=== PATIENT | female | born 1970 | race African-American/Black ===

== ENCOUNTER 2022-07-09 11:28 | Emergency (ER) | payer MEDICAID, OTHER ==
[~2022-07-09] VITALS: Ht 165.1 cm; Wt 82.0 kg
[2022-07-09 17:30] VITALS: BP 108/76
[2022-07-09] MEDS ORDERED: KETOROLAC TROMETH 60MG/2ML VIAL IM ONE (21:00)
== END 2022-07-09 21:12 | disposition home or self-care (01) ==
LOC: EDBD 11:28 → ER 11:28
DX: M25.561 Pain in right knee (principal); W18.39XA Other fall on same level, initial encounter; Y93.89 Activity, other specified; Y92.89 Other specified places as the place of occurrence of the external cause; Y99.8 Other external cause status
CPT/HCPCS: 73562; 96372; 99283; J1885

== ENCOUNTER 2024-09-27 14:59 | Emergency (ER) | payer MEDICAID ==
[~2024-09-27] VITALS: Ht 165.1 cm; Wt 97.2 kg
--- NOTE | 2024-09-27 16:00 | ED.PDOC ---
HPI (NEURO) HPI Comments A 54 YEAR OLD FEMALE PRESENTS TO THE ED WITH COMPLAINT OF HEADACHE AND HIGH BLOOD PRESSURE. PATIENT STATES THAT SHE HAS A HISTORY OF HYPERTENSION AND TAKES LOSARTAN 100 MG Q.D. AND METOPROLOL 50 MG Q.D. TO MANAGE HER BLOOD PRESSURE, BUT NOTES THAT IT HAS BEEN HIGHER THAN USUAL FOR THE LAST 2 DAYS. PATIENT REPORTS SHE ALSO BEGAN TO EXPERIENCE A HEADACHE YESTERDAY. PATIENT STATES HER BLOOD PRESSURE CONTINUED TO RISE TODAY DESPITE TAKING BOTH FOR MEDICATIONS, PROMPTING HER TO COME TO THE ED FOR EVALUATION. PATIENT NOTES THAT SHE HAS BEEN UNDER STRESS RECENTLY DUE TO TAKING CARE OF HER SICK MOTHER. PATIENT DENIES VISION CHANGES, SLURRED SPEECH, ONE-SIDED WEAKNESS, FACIAL DROOP, FEVER, CHILLS, SHORTNESS OF BREATH, CHEST PAIN, ABDOMINAL PAIN, NAUSEA, VOMITING, OR OTHER COMPLAINTS. NO OTHER SYMPTOMS OR MODIFYING FACTORS AT THIS TIME. PATIENT IS ALERT, ORIENTED X 4, AND HAS STEADY GAIT. Chief Complaint: Headache Time Seen by MD: 15:02 Primary Care Provider: DENIES Reviewed Notes: Nurses Notes, Medications, Allergies Information Source: Patient Mode of Arrival: Ambulatory Severity: Moderate Headache Severity: Moderate Timing: Days Duration: Since onset, Days Prehospital treatment: None Headache Quality: Aching Headache Location: Generalized Onset: At rest Circumstances: Recent stress Symptoms: Other (HEADACHE, HIGH BLOOD PRESSURE) Modifying factors: Nothing Associated Signs and Symptoms: Headache Past Medical History PAST MEDICAL HISTORY: HTN Surgical History: Unknown LICENSED PRACTICAL VOCATIONAL NURSE History: Denies all LICENSED PRACTICAL VOCATIONAL NURSE Hx Family History Family History: Reviewed,noncontributory to illness Social History Smoker: Non-Smoker Alcohol: Denies ETOH Use Drugs: Denies Drug Use Lives In: Home Constitutional: denies: chills, diaphoresis, fatigue, fever, malaise, sweats, weakness, others EENTM: denies: blurred vision, double vision, ear bleeding, ear discharge, ear drainage, ear pain, ear ringing, eye pain, eye redness, hearing loss, mouth pain, mouth swelling, nasal discharge, nose bleeding, nose congestion, nose pain, photophobia, tearing, throat pain, throat swelling, voice changes, others Respiratory: denies: cough, hemoptysis, orthopnea, SOB at rest, shortness of breath, SOB with excertion, stridor, wheezing, others Cardiovascular: reports: others (HIGH BLOOD PRESSURE); denies: chest pain, dizzy spells, diaphoresis, Dyspnea on exertion, edema, irregular heart beat, left arm pain, lightheadedness, palpitations, PND, syncope Gastrointestinal: denies: abdomen distended, abdominal pain, blood streaked bowels, constipated, diarrhea, dysphagia, difficulty swallowing, hematemesis, melena, nausea, poor appetite, poor fluid intake, rectal bleeding, rectal pain, vomiting, others Genitourinary: denies: abnormal vagina bleeding, burning, dyspareunia, dysuria, flank pain, frequency, hematuria, incontinence, pain, , vagina discharge, urgency, others Neurological: reports: headache; denies: dizziness, fainting, left sided numbness, left sided weakness, numbness, paresthesia, pre-existing deficit, right sided numbness, right sided weakness, seizure, speech problems, tingling, tremors, weakness, others Musculoskeletal: denies: back pain, gout, joint pain, joint swelling, muscle pain, muscle stiffness, neck pain, others Integumetry: denies: bruises, change in color, change in hair/nails, dryness, laceration, lesions, lumps, rash, wounds, others Allergic/Immunocompromised: denies: Difficulty Healing, Frequent Infections, Hives, Itching, others Hematologic/Lymphatic: denies: anemia, blood clots, easy bleeding, easy bruising, swollen glands, others Endocrine: denies: excessive hunger, excessive sweating, excessive thirst, excessive urination, flushing, intolerance to cold, intolerance to heat, unexplained weight gain, unexplained weight loss, others Psychiatric: reports: anxiety; denies: bipolar disorder, depression, hopeless, panic disorder, schizophrenia, sleepless, suicidal, others All Other Systems: Reviewed and Negative Physical Exam General Appearance: No Apparent Distress, Normal, Other (ANXIOUS ) HEENT: Normal ENT Inspection, PERRL/EOMI, Pharynx Normal, TMs Normal Neck: Full Range of Motion, Non-Tender, Normal, Normal Inspection Respiratory: Chest Non-Tender, Lungs Clear, No Accessory Muscle Use, No Respiratory Distress, Normal Breath Sounds Cardiovascular: No Edema, No JVD, No Murmur, No Gallop, Normal Peripheral Pulses, Regular Rate/Rhythm Breast Exam: Deferred Gastrointestinal: No Organomegaly, Non Tender, No Pulsatile Mass, Normal Bowel Sounds, Soft Genitalia: Deferred Pelvic: Deferred Rectal: Deferred Extremities: No calf tenderness, Normal capillary refill, Normal inspection, Normal range of motion, Non-tender, No pedal edema Musculoskeletal : Apperance: Normal Neurologic: Alert, 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 Was a procedure done?: No Differential Diagnosis (SZ) Seizure: N/A General Weakness: N/A Headache: Cluster, Migraine, Intracerebral Hemorrhage, Mass Lesion, Sinusitis, Other (HYPERTENSION, UNCONTROLLED HYPERTENSION) X-Ray, Labs, Meds, VS Vital Signs Date Time Temp Pulse Resp B/P (MAP) Pulse Ox O2 Delivery O2 Flow Rate FiO2 09/27/24 16:02 77 18 99 Room Air 09/27/24 16:02 98.2 77 18 134/84 (101) 99 98.2 09/27/24 16:00 77 09/27/24 15:22 77 09/27/24 15:22 98.2 77 18 134/84 (101) 99 Lab Test 09/27/24 15:19 Range/Units POC Glucose 100 70-106 mg/dl Current Medications Medications (Trade) Dose Ordered Sig/May Route Start Time Stop Time Status Last Admin Acetaminophen (Tylenol Tablet) 1,000 mg ONCE ONCE PO 09/27/24 16:00 09/27/24 16:01 DC 09/27/24 16:09 EXAM: CT HEAD WITHOUT CONTRAST INDICATION: headache TECHNIQUE: CT of the head without intravenous contrast. Radiation Dose Information: CT Dose: CTDI volume is 58.54 mGy. Dose-length product is 938.39 mGy*cm The dose indicators for CT are the volume Computed Tomography (CT) Dose Index (C TDIvol) and the Dose Length Product (DLP), and are measured in units of mGy and mGy-cm, respectively. These indicators are not patient dose, but values generated from the CT scanner acquisition factors. The report includes radiation exposure data for exposures received during this examination. COMPARISON: None FINDINGS: There is no evidence of acute intracranial hemorrhage, extra-axial collection, mass effect, midline shift, herniation or hydrocephalus. The ventricles, sulci and cisterns are age appropriate. The morales-white differentiation is intact. Patchy periventricular and subcortical white matter hypoattenuation is non specific but may be related to small vessel ischemic disease. The visualized paranasal sinuses and mastoid air cells are clear. The surrounding soft tissues and osseous structures are unremarkable. IMPRESSION: 1. No acute intracranial hemorrhage. 2. No CT findings of skull fracture. 3. No CT findings of paranasal sinus disease. ATED BY: LI MARTÍNEZ Jr., DO DICTATED DATE/TIME: 09/27/241556 SIGNED BY: LI MARTÍNEZ Jr., SIGNED DATE/TIME: 09/27/241556 CC: X-Ray, Labs, Meds, VS Comment TREATMENT: TYLENOL 1 G P.O. Images Reviewed?: Images reviewed and evaluated by me Time of 1ST Reevaluation: 16:25 Reevaluation 1ST: Improved Patient Education/Counseling: Diagnosis, Treatment, Need For Follow Up Family Education/Counseling: Diagnosis, Treatment, Need For Follow Up Medical Screening: No EMC Exist At This Time Departure 1 Departure Time of Disposition: 16:30 Impression: Primary Impression: Tension headache Additional Impression: Hypertension Qualified Codes: I10 - Essential (primary) hypertension Disposition: 01 HOME / SELF CARE / HOMELESS Condition: Stable Additional Instructions: FOLLOW-UP WITH PCP IN 1 TO 2 DAYS. TAKE MEDICATIONS PRESCRIBED. RETURN TO ED FOR ANY NEW OR WORSENING SYMPTOMS. e-Prescriptions Acetaminophen (Tylenol 8 Hour Arthritis) 650 Mg Tab 650 MG PO TID, #30 TAB Prov: BHANU SKAGGS 09/27/24 Discharged With: Self Critical Care Note Critical Care Time?: No Stability Stability form required: No I personally scribed for BHANU SKAGGS ([email or web address]) on 09/27/24 at 16:00. Electronically submitted by Miguel Ángel Alonzo ([email or web address]). I personally scribed for BHANU SKAGGS ([email or web address]) on 09/27/24 at 16:00. Electronically submitted by Miguel Ángel Alonzo ([email or web address]). I personally scribed for BHANU SKAGGS ([email or web address]) on 09/27/24 at 16:01. Electronically submitted by Miguel Ángel Alonzo ([email or web address]). BHANU SKAGGS Sep 27, 2024 16:00
[2024-09-27 16:02] VITALS: BP 134/84; PULSE 77; RESP 18; TEMP 98.2; O2SAT 99
[2024-09-27] MEDS: ACETAMINOPHEN 500 MG TAB PO ONE (16:09)
[2024-09-27] MEDS ORDERED: ACET-1080 PO (16:21)
--- NOTE | 2024-09-30 10:33 | ECG ---
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
== END 2024-09-27 16:26 | disposition home or self-care (01) ==
LOC: ER 14:59
DX: G44.209 Tension-type headache, unspecified, not intractable (principal); I10 Essential (primary) hypertension; Z79.899 Other long term (current) drug therapy
CPT/HCPCS: 70450; 82962